=== PATIENT | male | born 1985 | race Caucasian/White ===

== ENCOUNTER 2023-10-24 17:40 | Emergency (ER) | payer BC, MEDICAID, SELFPAY ==
[2023-10-24 17:43] VITALS: BP 142/85; PULSE 119; RESP 16; TEMP 36.6; O2SAT 99; BMI 34.8
--- NOTE | 2023-10-24 17:55 | ECG_ITS ---
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 Measurements Intervals [place] Rate: 124 P: 73 [place]: 169 QRS: 67 QRSD: 86 T: 71 QT: 336 QTc: 483 Interpretive Statements SINUS TACHYCARDIA NONSPECIFIC T-WAVE ABNORMALITY ABNORMAL RHYTHM ECG INTERPRETATION BASED ON A DEFAULT AGE OF 40 YEARS No previous ECG available for comparison Electronically Signed On 10-25-2023 14:17:49 SOCIAL MEDIA INTERN by Junior Sorenson M.D. [email or web address]
--- NOTE | 2023-10-24 17:55 | XRR_ITS ---
PROCEDURE INFORMATION: Exam: XR Chest Exam date and time: 10/24/2023 6:01 PM Age: 38 years old Clinical indication: Angina pectoris; Patient HX: Chest pain TECHNIQUE: Imaging protocol: Radiologic exam of the chest. Views: 1 view. COMPARISON: No relevant prior studies available. FINDINGS: Lungs: Unremarkable. No consolidation. Pleural spaces: Unremarkable. No pleural effusion. No pneumothorax. Heart/Mediastinum: Unremarkable. No cardiomegaly. Bones/joints: No acute findings. XR/XR chest 1V portable [id number] IMPRESSION: No acute findings.
[2023-10-24 18:09] LABS: Basophils % 0.5 %; Eosinophils # 0.2 10^3/uL (0.0-0.8); Eosinophils % 2.7 %; Lymphocytes # 2.3 10^3/uL (0.8-4.8); Lymphocytes % 28.8 %; Mean Corpuscular HGB Conc 34.9 g/dL (30-55); Mean Corpuscular Hemoglobin 30.2 pg (27-33); Mean Corpuscular Volume 86.6 fl (82-101); Mean Platelet Volume 10.2 fL (7.4-10.4); Monocytes # 0.6 10^3/uL (0.2-0.9); Monocytes % 7.4 %; Neutrophils # 4.88 10^3/uL (1.8-7.7); Neutrophils % 60.2 %; Nucleated Red Blood Cells % 0 %; Platelet Count 143 10^3/cmm (157-399); Red Blood Count 5.89 10^6/uL (3.85-5.65); Red Cell Distribution Width 12.7 % (12.1-15.1)
[2023-10-24 18:19] LABS: INR 0.85 (0.8-1.2)
[2023-10-24 18:30] LABS: Troponin(5th) Baseline < 6 ng/L (0-15)
[2023-10-24 18:32] LABS: Alanine Aminotransferase 28 U/L (0-41); Albumin Level 4.7 g/dL (3.5-5.2); Alkaline Phosphatase 111 U/L (40-130); Blood Urea Nitrogen 16 mg/dL (6-20); Calcium 9.3 mg/dL (8.5-10.5); Carbon Dioxide 27 mmol/L (22-29); Chloride 98 mmol/L (98-107); Globulin 2.3 g/dL (1.3-4.6); Glomerular Filtration Rate 56.4 mL/min (90-130); Glucose 120 mg/dL (65-115); Osmolality Calculated 286 mOsm/kg (285-295); Sodium 137 mmol/L (136-145); Total Bilirubin 0.4 mg/dL (0.15-1.2)
--- NOTE | 2023-10-24 18:32 | ED_ITS ---
HPI - Chest Pain 2 General: Chief Complaint: Chest Pain Stated Complaint: chest pain Time Seen by Provider: 10/24/23 17:55 History of Present Illness: 38-year-old male presents the emergency department with complaints of feeling like his heart was racing and having palpitations earlier today. He states he has had several episodes like this and was recently replaced on metoprolol. Patient states that he has previously utilized a Holter monitor and was advised that it was inconclusive. He states that that despite having metoprolol he felt his heart racing and became short of breath today. He denies chest pain at present he denies dizziness or lightheaded feeling. He denies being short of breath currently. He states that he did have COVID approximately 2 and half years ago and since that time he has had intermittent palpitations with intermittent shortness of breath. He states that he did check his pulse today when he felt his heart racing and he states it felt irregular. Associated symptoms: Reports dyspnea and palpitations Review of Systems 2 General: Reports: 10 or more systems reviewed and unremarkable except in HPI and below Const: Reports: fatigue Card: Reports: chest pain, palpitations and irregular heart rhythm Resp: Reports: dyspnea Physical Exam 2 Narrative: EXAM NARRATIVE: Constitutional: the patient appears well nourished and of normal development. Vital signs as documented. No acute distress at present. Alert and oriented-to person, place, time and situation. Head, eyes, ears, nose, mouth, throat: Normocephalic, atraumatic. Pupils-equal, round, reactive to light. No scleral icterus. Normal-appearing external ears. Normal appearing nasal turbinates, no drainage. No obvious oral lesions, posterior oropharynx without erythema or exudates. Neck: Supple, trachea is midline, no lymphadenopathy, no jugular venous distension, thyromegaly, or carotid bruits. Carotid upstrokes are brisk bilaterally. Lungs: clear to auscultation to all lung nettles. Symmetrical rise and fall of chest, no obvious signs of increased work of breathing at present. Cardiac: Sinus tachycardia, positive S1, S2. No murmurs, rubs or gallops that I can appreciate Abdomen: Soft, non-tender to palpation, normal active bowel sounds to all quadrants. No palpable masses, no organomegaly and abdominal bruits. Extremities: 2+ pulses in the upper extremities that are equal bilaterally, 2+ pulses in the lower extremities that are equal bilaterally. Non-edematous. Moves all extremities well, sensation to all extremities are noted. Skin: Warm, dry, intact. Course 2 Reevaluation(s): Reevaluation #1: Patient has remained chest pain-free and has had no difficulty while here in the emergency department he did receive IV metoprolol and states he has noticed his heart rate has significantly improved. I did advise him to continue taking his metoprolol as recommended and prescribed. I did provide him the on-call cardiology physicians office information and advised the patient to follow-up with his primary care provider and to discuss possible additional evaluation by cardiology. Time: 19:52 Vital Signs: Vital signs: Vital Signs Temperature 97.8 F 10/24/23 17:43 Pulse Rate 104 H 10/24/23 19:27 Respiratory Rate 21 H 10/24/23 19:27 Blood Pressure 138/99 10/24/23 18:46 Pulse Oximetry 95 10/24/23 19:27 Oxygen Delivery Me thod Room Air 10/24/23 19:27 MDM - Chest Pain Medical Decision Making Physical exam completed and documented, I will obtain serial cardiac enzymes, serial twelve-lead EKGs, chest x-ray, CBC, CMP, urinalysis, B-type natriuretic peptide, PT/PTT/INR, and a chest x-ray. I will provide cardiac dose aspirin. I have reviewed previous and pertinent medical records for assist in obtaining beneficial medical information to improved the care and treatment of the patient. Given the patient's intermittent dyspnea and previous COVID illness I will obtain a CT chest with IV contrast to rule out pulmonary embolism. Medical Records I reviewed the patient's medical records. Lab Data I reviewed the patient's lab results. 10/24/23 18:03 10/24/23 18:03 Radiology Impressions Chest X-Ray 10/24/23 17:55 IMPRESSION: No acute findings. Chest CTA 10/24/23 18:59 IMPRESSION: No acute findings. Laboratory Results WBC 8.10 10^3/uL (3.29-11.43) 10/24/23 18:03 RBC 5.89 10^6/uL (3.85-5.65) H 10/24/23 18:03 Hgb 17.80 g/dL (11.27-16.99) H 10/24/23 18:03 Hct 51.0 % (37-53) 10/24/23 18:03 MCV 86.6 fl (82-101) 10/24/23 18:03 MCH 30.2 pg (27-33) 10/24/23 18:03 MCHC 34.9 g/dL (30-55) 10/24/23 18:03 RDW 12.7 % (12.1-15.1) 10/24/23 18:03 Plt Count 143 10^3/cmm (157-399) L 10/24/23 18:03 MPV 10.2 fL (7.4-10.4) 10/24/23 18:03 Neut % (Auto) 60.2 % 10/24/23 18:03 Lymph % (Auto) 28.8 % 10/24/23 18:03 [place] % (Auto) 7.4 % 10/24/23 18:03 Eos % (Auto) 2.7 % 10/24/23 18:03 Baso % (Auto) 0.5 % 10/24/23 18: Neut # (Auto) 4.88 10^3/uL (1.8-7.7) 10/24/23 18:03 Lymph # (Auto) 2.3 10^3/uL (0.8-4.8) 10/24/23 18:03 [place] # (Auto) 0.6 10^3/uL (0.2-0.9) 10/24/23 18:03 Eos # (Auto) 0.2 10^3/uL (0.0-0.8) 10/24/23 18:03 Baso # (Auto) 0.0 10^3/uL (0.0-0.1) 10/24/23 18:03 Nucleated RBC % (auto) 0 % 10/24/23 18: Nucleated RBCs # 0.0 /100WBC 10/24/23 18:03 PT 11.90 SECONDS (12.1-14.9) L 10/24/23 18:03 INR 0.85 (0.8-1.2) 10/24/23 18:03 Sodium 137 mmol/L (136-145) 10/24/23 18:03 Potassium 3.6 mmol/L (3.5-5.1) 10/24/23 18:03 Chloride 98 mmol/L (98-107) 10/24/23 18:03 Carbon Dioxide 27 mmol/L (22-29) 10/24/23 18:03 Anion Gap 15.6 (5-19) 10/24/23 18:03 BUN 16 mg/dL (6-20) 10/24/23 18:03 Creatinine 1.4 mg/dL (0.7-1.2) H 10/24/23 18:03 GFR Calculation 56.4 mL/min (90-130) L 10/24/23 18:03 Glucose 120 mg/dL (65-115) H 10/24/23 18:03 Calculated Osmolality 286 mOsm/kg (285-295) 10/24/23 18:03 Calcium 9.3 mg/dL (8.5-10.5) 10/24/23 18:03 Total Bilirubin 0.4 mg/dL (0.15-1.2) 10/24/23 18:03 AST 19 U/L (0-40) 10/24/23 18:03 ALT 28 U/L (0-41) 10/24/23 18:03 Alkaline Phosphatase 111 U/L (40-130) 10/24/23 18:03 Troponin T Baseline < 6 ng/L (0-15) 10/24/23 18:03 Total Protein 7.0 g/dL (6.6-8.7) 10/24/23 18:03 Albumin 4.7 g/dL (3.5-5.2) 10/24/23 18:03 Globulin 2.3 g/dL (1.3-4.6) 10/24/23 18:03 All radiology interpretation(s) finalized by discharge EKG Data EKG 1: Interpretation: Twelve-lead EKG obtained at 1752 and reviewed at 1754 demonstrates sinus tachycardia with a ventricular rate of 124, CO interval 156, QRS duration 93, QT 336, QTc 410 at present there is no ST elevation or depression to demonstrate acute ischemia or infarction. Discharge Plan Discharge Patient Disposition: Home Clinical Impression: Heart palpitations Condition: Stable Discharge Orders: Discharge ED (Routine); Ordered 10/24/23 Ordered By: Andrea Durán Referrals: Shawn Rucker M.D [Physician] - Kareem Carson DO [Primary Care Provider] - Discharge Diet: Cardiac and Low Salt Discharge Activity: Resume usual activity Patient Instructions: Opioid Safety, Pain Management Activity Restrictions/Additional Instructions: Activity Restrictions/Additional Instructions: Thank you for choosing [facility] for your healthcare needs today. Please realize that you were seen in the Emergency Department and that we are providing you with an emergency medical screening exam and this may not be a complete and all inclusive of all the testing and or medical work-up that you may need to determine your ailment or severity of your illness. It is very important that you follow-up as instructed with your Primary care provider or Specialist for additional evaluation and to discuss your medical treatment plan. You may return to the Emergency Department should you have concerns or if your condition changes or worsens in any way. Coding Level of Care Code ED [employer] for Marjorie Castillo
[2023-10-24] MEDS: metoprolol tartrate 1 mg/1 mL SDV 5 mL 5 MG IVP (18:41)
[2023-10-24 18:42] LABS: Anion Gap 15.6 (5-19); Aspartate Amino Transferase 19 U/L (0-40); Potassium 3.6 mmol/L (3.5-5.1)
[2023-10-24 18:46] VITALS: BP 138/99; PULSE 106; O2SAT 97
--- NOTE | 2023-10-24 18:59 | CTR_ITS ---
PROCEDURE INFORMATION: Exam: CTA Chest With Contrast Exam date and time: 10/24/2023 7:10 PM Age: 38 years old Clinical indication: Pain; Shortness of breath; Chest pressure; Patient HX: Cp with SOB and tachycardia; Additional info: Cxp/dyspnea TECHNIQUE: Imaging protocol: Computed tomographic angiography of the chest with contrast. Exam focused on the arteries. 3D rendering (Not supervised by radiologist): MIP and/or 3D reconstructed images were created by the technologist. Radiation optimization: All CT scans at this facility use at least one of these dose optimization techniques: automated exposure control; mA and/or kV adjustment per patient size (includes targeted exams where dose is matched to clinical indication); or iterative reconstruction. Contrast material: OMNI 350; Contrast volume: 54 ml; Contrast route: INTRAVENOUS (IV); COMPARISON: CR (CHEST, ) 10/24/2023 6:01 PM RADIATION DOSE METRICS: Total DLP (mGy-cm): 287.58 FINDINGS: Pulmonary arteries: Normal. No pulmonary emboli. Aorta: No aortic aneurysm. No aortic dissection. Lungs: No consolidation. No masses. Pleural spaces: No pneumothorax. No pleural effusion. Heart: No cardiomegaly. No pericardial effusion. Lymph nodes: Calcified granulomatous changes are noted in mediastinal and hilar lymph nodes. Liver: Visualized portions of liver suggest steatosis. Spleen: Visualized portions of spleen suggest splenomegaly. Bones/joints: No acute fracture. Soft tissues: Unremarkable. CT/CT angio chest PE protcl [id number] IMPRESSION: No acute findings.
[2023-10-24] MEDS: iohexol 350 mg/mL 500 mL Btl (per mL) IV (19:17)
[2023-10-24 19:27] VITALS: PULSE 104; RESP 21; O2SAT 95
[2023-10-24] MEDS: sodium chloride 0.9% 1,000 ML 999 ML IV (19:51)
--- NOTE | 2023-10-24 19:55 | ECG_ITS ---
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 Measurements Intervals [place] Rate: 124 P: 68 MS: 156 QRS: 63 QRSD: 93 T: 94 QT: 336 QTc: 483 Interpretive Statements SINUS TACHYCARDIA LOW QRS VOLTAGE IN PRECORDIAL LEADS [QRS DEFLECTION < 1.0 mV IN CHEST LEADS] NONSPECIFIC T-WAVE ABNORMALITY ABNORMAL RHYTHM ECG INTERPRETATION BASED ON A DEFAULT AGE OF 39 YEARS Compared to ECG 10/24/2023 17:44:26 Low QRS voltage now present T-wave abnormality still present Electronically Signed On 10-25-2023 14:20:29 RUBY ENGINEER by Junior Sorenson M.D. [email or web address]
[2023-10-24 20:09] VITALS: BP 127/81; PULSE 100; RESP 18; O2SAT 96
--- NOTE | 2023-10-24 20:10 | PC.NURSE ---
discharge delayed due to fluid infusion.
[2023-10-24 21:02] VITALS: BP 127/81; PULSE 97; RESP 18; TEMP 36.6; O2SAT 96
== END 2023-10-24 21:03 | disposition home or self-care (01) ==
PROVIDERS: Emergency Provider Internal Medicine; PCP Electrodiagnostic Medicine
DX: R00.2 Palpitations (principal)
CPT/HCPCS: 71045; 71275; 80053; 84484; 85025; 85610; 93005; 96374; 99285; J3490; J7030; Q9967

== ENCOUNTER 2025-01-20 18:29 | Emergency (ER) | payer BC, MEDICAID, SELFPAY ==
[2025-01-20 18:44] VITALS: BP 136/87; PULSE 80; RESP 17; TEMP 36.9; O2SAT 98; BMI 36.9
--- NOTE | 2025-01-20 19:40 | W.ED.WOUNDLC ---
HPI - Wound/Laceration General: Chief Complaint: Wound/Laceration Stated Complaint: left hand lac Time Seen by Provider: 01/20/25 19:10 Source: patient Mode of arrival: ambulatory Limitations: no limitations History of Present Illness: 39-year-old male states he is trying to cut a zip tie with his knife and slipped and cut his left middle finger has a 2 cm laceration to distal tip of the left middle finger pain is 2 out of 10 bleeding is controlled this time has full range of motion. Denies any other injuries Associated symptoms: Denies chills, fever(s), nausea or vomiting Related Data Previous Rx's ?Medication ?Instructions ?Recorded aspirin 325 mg tablet 325 mg PO DAILY #90 tabs 01/08/25 diltiazem HCl 120 mg tablet 120 mg PO DAILY #90 tabs 01/08/25 (Cardizem) metoprolol succinate 25 mg 12.5 mg (1/2 x 25 mg) PO .q hs #45 01/08/25 tablet,extended release 24 hr tabs Allergies Allergy/AdvReac Type Severity Reaction Status Date / Time No Known Allergies Allergy Verified 01/08/25 12:28 Review of Systems Const: Denies: fever(s), chills, body aches or change in appetite ENMT: Denies: throat pain or dental pain Card: Denies: chest pain Resp: Denies: dyspnea GI: Denies: abdominal pain, nausea, vomiting or diarrhea Musc: Reports: extremity pain; Denies: neck pain or back pain Skin/Breast: Denies: rash Neuro: Denies: headache(s) PFS ED PFSH: Family History (Updated 01/08/25 @ 12:33 by Marina Aguilar LPN) Mother CAD (coronary artery disease) Father Chronic kidney disease (CKD) Hypertension Social History (Updated 01/08/25 @ 12:33 by Marina Aguilar LPN) Smoking and tobacco/nicotine status: never used tobacco/nicotine Alcohol intake: never Substance/Drug Use: never Physical Exam Const: COMMON NORMALS: no acute distress, patient oriented x3 and healthy appearing HENMT: COMMON NORMALS: normocephalic and atraumatic HEAD & SCALP: normocephalic and atraumatic Eye: COMMON NORMALS: conjunctivae normal CONJUNCTIVA: Yes conjunctivae normal Neck/C-Spine: COMMON NORMALS: supple Chest: COMMONS NORMALS: normal inspection of the chest Resp: COMMON NORMALS: normal respiratory effort Extremity: COMMON NORMALS: full ROM NARRATIVE EXTREMITY EXAM: 2cm lac to distal left middle finger no tendon involvement Neuro: COMMON NORMALS: patient oriented x3, moves all extremities and no focal motor deficits Psych: COMMON NORMALS: mental status grossly normal, Normal thought process present and cooperative THOUGHT PROCESS: Normal thought process present Skin: COMMON NORMALS: no rashes or lesions noted and no wounds GENERAL SKIN EXAM: no rashes or lesions noted Procedures Laceration Laceration 1: Site: hand Side (If applicable): left Size (cm): 2 Description: linear Depth: simple, single layer Local Anesthetic: lidocaine 1% Amount of anesthesia used (mL): 5 Pre-repair: wound explored, irrigated extensively and deep structures intact Skin layer closed with: nylon Size (cm): 5-0 Number of sutures: 4 Technique: simple, interrupted Course Vital Signs: Vital signs: Vital Signs Temperature 98.4 F 01/20/25 18:44 Pulse Rate 80 01/20/25 18:44 Respiratory Rate 17 01/20/25 18:44 Blood Pressure 136/87 01/20/25 18:44 Pulse Oximetry 98 01/20/25 18:44 Oxygen Delivery Me thod Room Air 01/20/25 18:44 MDM - Wound/Laceration Medical Decision Making Patient presents for laceration to distal tip of finger was able to repair with suture no sign of tendon vomit he is to have sutures removed in 7 days return if worsening. No radiology studies performed this visit Discharge Plan Discharge Patient Disposition: Home Clinical Impression: Finger laceration Condition: Stable Prescriptions: No Action aspirin 325 mg tablet 325 mg PO DAILY Qty: 90 3RF diltiazem HCl [Cardizem] 120 mg tablet 120 mg PO DAILY Qty: 90 3RF metoprolol succinate 25 mg tablet extended release 24 hr 12.5 mg PO .q hs Qty: 45 3RF Discharge Orders: Discharge ED (Routine); Ordered 01/20/25 Ordered By: Harvey Casillas Referrals: Kareem Carson DO [Primary Care Provider, Family Practice] Discharge Diet: Advance as tolerated Discharge Activity: Resume usual activity Patient Instructions: Finger Laceration (ED) Activity Restrictions/Additional Instructions: suture removal in 7 days Print Language: Barbadian Coding Level of Care Code ED Director Wholesale for Marjorie Castillo
[2025-01-20] MEDS: lidocaine 1% 10 ML INJ 20 ML INTRADERMA (19:46)
[2025-01-20] MEDS: tetanus-dipt-pertussis 0.5 mL SDV IM (19:50)
== END 2025-01-20 20:07 | disposition home or self-care (01) ==
PROVIDERS: Emergency Provider Emergency Medicine; PCP Electrodiagnostic Medicine
DX: S61.213A Laceration without foreign body of left middle finger without damage to nail, initial encounter (principal); W26.0XXA Contact with knife, initial encounter; Z79.82 Long term (current) use of aspirin
CPT/HCPCS: 12001; 90471; 90715; 99283; J9999

== ENCOUNTER 2025-01-24 06:16 | Outpatient (CLI) | payer BC, MEDICAID, SELFPAY ==
--- NOTE | 2025-01-24 06:15 | USCV_ITS ---
Arnol Lozano Age: 39 Gender: M : 1985 Exam Date: 01/24/2025 06:36 Ordering Phys: Haleigh Green MD ([email or web address]) Technologist: Exam Location: [facility] [place] Indication: palp chest pain BP: 120 / 80 HR: 67 Rhythm: Sinus Technical Quality: Adequate MEASUREMENTS (Male / Female) Normal Values 2D ECHO LV Diastolic Diameter PLAX 4.5 cm 4.2 - 5.9 / 3.9 - 5.3 cm IVS Diastolic Thickness 1.2 cm 0.6 - 1.0 / 0.6 - 0.9 cm IVS Systolic Thickness 1.4 cm LVPW Diastolic Thickness 1.4 cm 0.6 - 1.0 / 0.6 - 0.9 cm LVPW Systolic Thickness 2.1 cm LVOT Diameter 2.0 cm LV Ejection Fraction 2D Teich 61.2 % LV Ejection Fraction MOD 4C 58.4 % LV Ejection Fraction MOD 2C 69.2 % LV Ejection Fraction 2C AL 70.7 % LA Diameter 3.9 cm RA Systolic Volume 4C AL 51.6 ml RA Systolic Volume 4C MOD 47.9 ml Aorta at Sinotubular Diameter 2.9 cm IVC Diameter 2.6 cm M-MODE LA Ao Ratio MM 1.4 AV Cusp Separation MM 2.5 cm DOPPLER AV Peak Velocity 122.0 cm/s LVOT Peak Velocity 99.0 cm/s AV Area Cont Eq vti 3.3 cm squared AV Area Cont Eq pk 2.6 cm squared MV Peak Velocity 89.0 cm/s MV Area PHT 6.0 cm squared Mitral E to A Ratio 1.1 TR Peak Velocity 203.0 cm/s TR Peak Gradient 16.5 mmHg TV Peak E Velocity 116.0 cm/s PV Peak Velocity 117.0 cm/s FINDINGS Left Ventricle Normal left ventricular size, systolic function and wall thickness, with no regional wall motion abnormalities. Left ventricular ejection fraction is estimated at 60 %. Grade II/IV diastolic dysfunction, moderately elevated filling pressures. Right Ventricle The right ventricle is normal in size and function. Right Atrium The right atrium is normal in size. Left Atrium The left atrium is normal in size. Mitral Valve Mildly thickened mitral valve. No mitral valve stenosis. Mild mitral valve regurgitation. Aortic Valve Structurally normal aortic valve without significant sclerosis or stenosis. There is no aortic regurgitation. Tricuspid Valve Structurally normal tricuspid valve without significant stenosis or regurgitation. Pulmonary artery systolic pressure is normal. Pulmonic Valve Mild pulmonary valve regurgitation. Pericardium Normal pericardium without effusion. Aorta Normal ascending aorta dimension. IVC The inferior vena cava appears normal. CONCLUSIONS Normal left ventricular size, systolic function and wall thickness, with no regional wall motion abnormalities. Left ventricular ejection fraction is estimated at 60 %. Grade II/IV diastolic dysfunction, moderately elevated filling pressures. Mildly thickened mitral valve. No mitral valve stenosis. Mild mitral valve regurgitation. There is no pericardial effusion. Right atrial pressure is around 5 mm of mercury. Haleigh Green MD (Electronically Signed) Final Date: 03 Feb 2025 16:29 S
== END 2025-01-24 06:17 | disposition home or self-care (01) ==
PROVIDERS: PCP Electrodiagnostic Medicine; Visit Provider Internal Medicine Cardiovascular Disease
DX: R00.2 Palpitations (principal); R93.1 Abnormal findings on diagnostic imaging of heart and coronary circulation; I34.0 Nonrheumatic mitral (valve) insufficiency; I37.1 Nonrheumatic pulmonary valve insufficiency
CPT/HCPCS: 93306